=== PATIENT | female | born 1975 | race African-American/Black ===

== ENCOUNTER → 2024-04-12 | Outpatient (CLI) | payer MEDICARE, OTHER ==
--- NOTE | 2024-04-13 12:11 | MM ---
Reason for Exam: Screening (asymptomatic). Last mammogram was performed 14 year(s) and 10 month(s) ago. Patient History: Menarche at age 10. Patient has no children. Left ovary removed at age 32. Right ovary removed at age 32. Hysterectomy at age 32. Postmenopausal. Maternal grandmother had breast cancer, age 60. Risk Values: Jessica 5 year model risk: 1.1%. NCI Lifetime model risk: 8.7%. Prior Study Comparison: 07/10/2008 Bilateral Screening Mammogram, [facility]. 07/11/2009 Bilateral Screening Mammogram, [facility]. Tissue Density: The breasts are heterogeneously dense, which may obscure small masses. Findings: Analyzed By CAD. There is no suspicious group of microcalcifications or new suspicious mass in either breast. Overall Assessment: Benign, BI-RAD 2 Management: Screening Mammogram of both breasts in 1 year. . Patient should continue monthly self-breast exams. A clinical breast exam by your physician is recommended on an annual basis. This exam should not preclude additional follow-up of suspicious palpable abnormalities. Note on Jessica scores and lifetime risk: 1. A Jessica score greater than 3% is considered moderate risk. If this is the case, consider specialist referral to assess eligibility for a risk reducing agent. 2. If overall lifetime risk for the development of breast cancer is 20% or higher, the patient may qualify for future screening with alternating mammogram and breast MRI. [facility], , 04/13/2024 12:08 PM. Electronically signed and approved by: Yaron Andrews M.D. Radiologis
== END | disposition home or self-care (01) ==
LOC: EEVIPCON 04-04 11:15 → RADMAMWWP 15:20
PROVIDERS: ATTEND Family Medicine
CPT/HCPCS: 77063; 77067

== ENCOUNTER 2024-05-30 07:07 | Day surgery (SDC) | payer MEDICARE, OTHER ==
[2024-05-27 09:16] VITALS: BMI 27.1
[2024-05-30] MEDS ORDERED: LIDOCAINE 1% (10MG/ML) FOR IV START INTRADERMA PRN (07:18)
[2024-05-30 07:31] VITALS: TEMP 98.4
[2024-05-30] MEDS: IV FLUID CONTINUATION 1,000 ML IV ONE (07:36)
[2024-05-30] MEDS: LACTATED RINGERS 1,000 ML IV SCH (07:37)
[2024-05-30 07:39] LABS: Glucose,Whole Blood 87 mg/dL (70-110)
[2024-05-30] MEDS ORDERED: PROPOFOL 10 MG/ML 20 ML VIAL IV ONE (07:42)
--- NOTE | 2024-05-30 07:45 | P.GSHP ---
History of Present Illness H&P Date: 05/30/24 CHIEF COMPLAINT: Colon screen HISTORY OF PRESENT ILLNESS: The patient is a 48-year-old female who presents for colon screen. Lower endoscopy was offered for further evaluation and management. PAST MEDICAL HISTORY: Please see list. PAST SURGICAL HISTORY: Please see list. MEDICATIONS: Please see list. ALLERGIES: Please see list. SOCIAL HISTORY: No illicit drug use FAMILY HISTORY: No reports of Crohn disease or ulcerative colitis. REVIEW OF ORGAN SYSTEMS: CONSTITUTIONAL: No reports of fevers or chills. PHYSICAL EXAM: VITAL SIGNS: Stable GENERAL: Well-developed pleasant in no acute distress. HEENT: No scleral icterus. Extraocular movements grossly intact. Moist buccal mucosa. NECK: Supple without lymphadenopathy. CHEST: Unlabored respirations. Equal bilateral excursions. CARDIOVASCULAR: Regular rate and rhythm. Distal 2+ pulses. ABDOMEN: Soft, nontender, nondistended. MUSCULOSKELETAL: No clubbing, cyanosis, or edema. ASSESSMENT: 1. Colon screen. PLAN: 1. Recommend proceeding with a lower endoscopy Past Medical History Past Medical History: Diabetes Mellitus, Hyperlipidemia, Hypertension Additional Past Medical History / Comment(s): Diet controlled DM, schizophrenia, glaucoma History of Any Multi-Drug Resistant Organisms: None Reported Past Surgical History: Hysterectomy Additional Past Surgical History / Comment(s): Glaucoma removal Past Anesthesia/Blood Transfusion Reactions: No Reported Reaction Smoking Status: Current every day smoker - Past Family History Mother Family Medical History: CVA/TIA, Hypertension Additional Family Medical History / Comment(s): 04/2013 stroke Medications and Allergies Home Medications Medication Instructions Recorded Confirmed Type ARIPiprazole [Abilify] 30 mg PO HS 05/27/24 05/30/24 History Aspirin 81 mg PO DAILY 05/27/24 05/30/24 History Atorvastatin [Lipitor] 10 mg PO DAILY 05/27/24 05/30/24 History amLODIPine BESYLATE 5 mg PO DAILY 05/27/24 05/30/24 History diphenhydrAMINE [Benadryl] 50 mg PO BID 05/27/24 05/30/24 History lisinopriL [Zestril] 20 mg PO DAILY 05/27/24 05/30/24 History Allergies Allergy/AdvReac Type Severity Reaction Status Date / Time No Known Allergies Allergy Verified 05/27/24 09:02 Surgical - Exam Vital Signs Temp Pulse Resp BP Pulse Ox 98.4 F 70 16 161/84 100 05/30/24 07:29 05/30/24 07:29 05/30/24 07:29 05/30/24 07:29 05/30/24 07:29
--- NOTE | 2024-05-30 08:11 | P.PCN ---
Date of Procedure: 05/30/24 Description of Procedure: PREOPERATIVE DIAGNOSIS: Family history colon polyps Colonoscopy screening POSTOPERATIVE DIAGNOSIS: Poor prep with solid stool Constipation OPERATION: Colonoscopy to rectum, aborted due to poor prep SURGEON: Emy Avila MD. ANESTHESIA: MAC. INDICATIONS: The patient is a 48-year-old female who presents with family history of colon polyps. She presents for first colonoscopy. Benefits and risks were described and informed consent was obtained. DESCRIPTION OF PROCEDURE: The patient had undergone GoLytely bowel prep. The patient had been brought into the endoscopy room and laid in the left lateral decubitus position. After adequate intravenous sedation, the rectum was examined with 2% lidocaine jelly. No external hemorrhoids were encountered. The rectal tone was within normal limits. No lesions were palpated in the rectal vault. An Olympus colonoscope was inserted and sigmoid colon were liquid stools were found. Solid stool was obstructing passage of the scope beyond the rectum. The procedure was aborted. No inflamed hemorrhoids were identified. The colonoscope was removed. Withdrawal time was over 6 minutes. FINDINGS: [place] preparation quality scale 5 (1-5) No external prolapsed hemorrhoids. Scope advanced to the rectum. Poor prep with solid stool rectum, nondiagnostic and aborted RECOMMENDATIONS: Recommend prolonged bowel prep 3-5 days. Will need immediate colonoscopy screening upon rescheduling Plan - Discharge Summary Discharge Rx Participant: No New Discharge Prescriptions: New Lactulose [Cephulac] 30 ml PO BID #500 ml Continue Aspirin 81 mg PO DAILY lisinopriL [Zestril] 20 mg PO DAILY ARIPiprazole [Abilify] 30 mg PO HS diphenhydrAMINE [Benadryl] 50 mg PO BID Atorvastatin [Lipitor] 10 mg PO DAILY amLODIPine BESYLATE 5 mg PO DAILY Discharge Medication List ARIPiprazole [Abilify] 30 mg PO HS 05/27/24 [History] Aspirin 81 mg PO DAILY 05/27/24 [History] Atorvastatin [Lipitor] 10 mg PO DAILY 05/27/24 [History] amLODIPine BESYLATE 5 mg PO DAILY 05/27/24 [History] diphenhydrAMINE [Benadryl] 50 mg PO BID 05/27/24 [History] lisinopriL [Zestril] 20 mg PO DAILY 05/27/24 [History] Lactulose [Cephulac] 30 ml PO BID #500 ml 05/30/24 [Rx] Follow up Appointment(s)/Referral(s): Emy Avila MD [STAFF PHYSICIAN] - 06/07/24 11:00 am Patient Instructions/Handouts: *Surgery [facility] - (Anesthesia) Discharge Instructions Outpatient Surgery, Constipation (DC) Activity/Diet/Wound Care/Special Instructions: Recommend 3-day liquid diet prep prior to colonoscopy. Discharge Disposition: HOME SELF-CARE
[2024-05-30 08:27] VITALS: BP 149/90; PULSE 63; RESP 14
== END 2024-05-30 08:40 | disposition home or self-care (01) ==
LOC: ORWHC2ENDO 07:07
PROVIDERS: ATTEND Surgery Plastic and Reconstructive Surgery
DX: Z12.11 Encounter for screening for malignant neoplasm of colon (principal); K59.00 Constipation, unspecified; Z53.8 Procedure and treatment not carried out for other reasons; Z83.719 Family history of colon polyps, unspecified; E11.9 Type 2 diabetes mellitus without complications; I10 Essential (primary) hypertension; E78.5 Hyperlipidemia, unspecified; F20.9 Schizophrenia, unspecified; F17.210 Nicotine dependence, cigarettes, uncomplicated; Z90.710 Acquired absence of both cervix and uterus; Z79.899 Other long term (current) drug therapy; Z79.82 Long term (current) use of aspirin; Z98.890 Other specified postprocedural states
CPT/HCPCS: J2704; G0105; 45378

== ENCOUNTER 2024-09-01 08:01 | Day surgery (SDC) | payer MEDICARE, OTHER ==
[2024-08-23 10:50] VITALS: BMI 26.2
[2024-09-01 08:32] VITALS: RESP 16; TEMP 99.3
[2024-09-01] MEDS: IV FLUID CONTINUATION 1,000 ML IV ONE (08:35)
[2024-09-01] MEDS: LIDOCAINE 1% (10MG/ML) FOR IV START INTRADERMA PRN (08:35)
[2024-09-01] MEDS: LACTATED RINGERS 1,000 ML IV SCH (08:35)
[2024-09-01 08:40] LABS: Glucose,Whole Blood 91 mg/dL (70-110)
--- NOTE | 2024-09-01 08:50 | P.GSHP ---
History of Present Illness H&P Date: 09/01/24 CHIEF COMPLAINT: Colon screen HISTORY OF PRESENT ILLNESS: The patient is a 49-year-old female who presents for colon screen. She has personal history of positive Cologuard. Additionally patient has severe chronic constipation. Patient returns for completion colonoscopy due to very poor prep. Lower endoscopy was offered for further evaluation and management. PAST MEDICAL HISTORY: Please see list. PAST SURGICAL HISTORY: Please see list. MEDICATIONS: Please see list. ALLERGIES: Please see list. SOCIAL HISTORY: No illicit drug use FAMILY HISTORY: No reports of Crohn disease or ulcerative colitis. REVIEW OF ORGAN SYSTEMS: CONSTITUTIONAL: No reports of fevers or chills. PHYSICAL EXAM: VITAL SIGNS: Stable GENERAL: Well-developed pleasant in no acute distress. HEENT: No scleral icterus. Extraocular movements grossly intact. Moist buccal mucosa. NECK: Supple without lymphadenopathy. CHEST: Unlabored respirations. Equal bilateral excursions. CARDIOVASCULAR: Regular rate and rhythm. Distal 2+ pulses. ABDOMEN: Soft, nontender, nondistended. MUSCULOSKELETAL: No clubbing, cyanosis, or edema. ASSESSMENT: 1. Colon screen. 2. Chronic constipation PLAN: 1. Recommend proceeding with a lower endoscopy Past Medical History Past Medical History: Hyperlipidemia, Hypertension Additional Past Medical History / Comment(s): schizophrenia, glaucoma History of Any Multi-Drug Resistant Organisms: None Reported Past Surgical History: Hysterectomy Additional Past Surgical History / Comment(s): Glaucoma removal Past Anesthesia/Blood Transfusion Reactions: No Reported Reaction Additional Past Anesthesia/Blood Transfusion Reaction / Comment(s): no blood transfusion Smoking Status: Current every day smoker - Past Family History Mother Family Medical History: CVA/TIA, Hypertension Additional Family Medical History / Comment(s): 04/2013 stroke Medications and Allergies Home Medications Medication Instructions Recorded Confirmed Type ARIPiprazole [Abilify] 30 mg PO HS 05/27/24 08/30/24 History Aspirin 81 mg PO DAILY 05/27/24 08/30/24 History Atorvastatin [Lipitor] 10 mg PO DAILY 05/27/24 08/30/24 History amLODIPine BESYLATE 5 mg PO DAILY 05/27/24 08/30/24 History diphenhydrAMINE [Benadryl] 50 mg PO BID 05/27/24 08/30/24 History lisinopriL [Zestril] 20 mg PO DAILY 05/27/24 08/30/24 History Lactulose [Cephulac] 30 ml PO BID PRN 08/30/24 08/30/24 History Allergies Allergy/AdvReac Type Severity Reaction Status Date / Time No Known Allergies Allergy Verified 08/30/24 14:02 Surgical - Exam Vital Signs Temp Pulse Resp BP Pulse Ox 99.3 F 67 16 127/85 99 09/01/24 08:31 09/01/24 08:31 09/01/24 08:31 09/01/24 08:31 09/01/24 08:31
[2024-09-01] MEDS ORDERED: PROPOFOL 10 MG/ML 20 ML VIAL IV ONE (08:59)
[2024-09-01 09:42] VITALS: BP 145/87; PULSE 57
--- NOTE | 2024-09-01 10:08 | P.PCN ---
Date of Procedure: 09/01/24 Description of Procedure: PREOPERATIVE DIAGNOSIS: Positive Cologuard testing Colonoscopy screening POSTOPERATIVE DIAGNOSIS: Tubular adenoma sigmoid colon Pandiverticulosis Sigmoid diverticulosis Internal hemorrhoids, grade 2 OPERATION: Colonoscopy to the ileocecal valve and appendiceal orifice, cecum Colonoscopy with hot snare polypectomy SURGEON: Emy Avila MD. ANESTHESIA: MAC. INDICATIONS: The patient is an 49-year-old male who presents with personal history of abnormal Cologuard testing. Benefits and risks were described and informed consent was obtained. DESCRIPTION OF PROCEDURE: The patient had undergone lactulose and GoLytely prep prep. The patient had been brought into the operating room and laid in the left lateral decubitus position. After adequate intravenous sedation, the rectum was examined with 2% lidocaine jelly. No external hemorrhoids were encountered. The rectal tone was within normal limits. No lesions were palpated in the rectal vault. An Olympus colonoscope was advanced until the cecum, ileocecal valve and appendiceal orifice were clearly viewed. The prep was good. Scattered sigmoid diverticulosis was encountered with highly redundant sigmoid colon. Colonic polyps were found and removed. No evidence of focal colitis was found. Retroflexion of the scope demonstrated grade 2 internal hemorrhoids without active bleeding or inflammation. The colon was desufflated. The patient had tolerated the procedure well. Withdrawal time was over 6 minutes. FINDINGS: Aronchick preparation quality scale 2 (1-5) Internal hemorrhoids, grade 2 External hemorrhoids, grade 2. No arteriovenous malformations. Sigmoid diverticulosis with pandiverticulosis and highly redundant sigmoid colon Removal of 1 polyps: - Snare polypectomy 20 cm from the anal verge, 5 mm tubulovillous adenoma, sigmoid colon No focal colitis. RECOMMENDATIONS: Repeat colonoscopy 3 years, 2027 Plan - Discharge Summary Discharge Rx Participant: No New Discharge Prescriptions: Continue Aspirin 81 mg PO DAILY lisinopriL [Zestril] 20 mg PO DAILY ARIPiprazole [Abilify] 30 mg PO HS diphenhydrAMINE [Benadryl] 50 mg PO BID Atorvastatin [Lipitor] 10 mg PO DAILY amLODIPine BESYLATE 5 mg PO DAILY Lactulose [Cephulac] 30 ml PO BID PRN PRN Reason: Constipation Discharge Medication List ARIPiprazole [Abilify] 30 mg PO HS 05/27/24 [History] Aspirin 81 mg PO DAILY 05/27/24 [History] Atorvastatin [Lipitor] 10 mg PO DAILY 05/27/24 [History] amLODIPine BESYLATE 5 mg PO DAILY 05/27/24 [History] diphenhydrAMINE [Benadryl] 50 mg PO BID 05/27/24 [History] lisinopriL [Zestril] 20 mg PO DAILY 05/27/24 [History] Lactulose [Cephulac] 30 ml PO BID PRN 08/30/24 [History] Follow up Appointment(s)/Referral(s): Emy Avila MD [STAFF PHYSICIAN] - As Needed Patient Instructions/Handouts: *Surgery [facility] - (Anesthesia) Discharge Instructions Outpatient Surgery, Colorectal Polyps (GEN) Activity/Diet/Wound Care/Special Instructions: Repeat colonoscopy 3 years, 2027 Discharge Disposition: HOME SELF-CARE
== END 2024-09-01 10:23 | disposition home or self-care (01) ==
LOC: ORWHC2ENDO 08:01
PROVIDERS: ATTEND Surgery Plastic and Reconstructive Surgery
DX: Z12.11 Encounter for screening for malignant neoplasm of colon (principal); K57.30 Diverticulosis of large intestine without perforation or abscess without bleeding; D12.5 Benign neoplasm of sigmoid colon; K64.1 Second degree hemorrhoids; K59.09 Other constipation; E78.5 Hyperlipidemia, unspecified; F17.200 Nicotine dependence, unspecified, uncomplicated; I10 Essential (primary) hypertension; Z79.82 Long term (current) use of aspirin
CPT/HCPCS: 88305; 45385; J2704

== ENCOUNTER → 2024-12-12 | Outpatient (CLI) | payer MEDICARE, OTHER ==
--- NOTE | 2024-12-12 11:30 | XR ---
EXAMINATION TYPE: XR chest 2V DATE OF EXAM: 12/12/2024 CLINICAL INDICATION: Female, 49 years old with history of R06.02 SOB F17.200 NICOTINE DEPENDENCE, UNS PECIFIED, TECHNIQUE: Frontal and lateral views of the chest are obtained. COMPARISON: None FINDINGS: There is no focal air space opacity, pleural effusion, or pneumothorax seen. The cardiac silhouette size is within normal limits. The osseous structures are intact. IMPRESSION: No acute cardiopulmonary process. [facility], , 12/12/2024 11:28 AM
== END | disposition home or self-care (01) ==
LOC: RADXRMAIN 10:59
PROVIDERS: ATTEND Internal Medicine
DX: R06.02 Shortness of breath (principal); F17.200 Nicotine dependence, unspecified, uncomplicated
CPT/HCPCS: 71046